=== PATIENT | female | born 1970 | race Caucasian/White ===

== ENCOUNTER 2018-08-22 00:20 | Outpatient (CLI) | payer OTHER, SELFPAY ==
--- NOTE | 2018-08-22 08:39 | DI.MAMMO_ITS ---
SYMPTOMS/DIAGNOSIS: SCREENING, Z12.39 MAMMOGRAM: Mammograms were interpreted according to the usual protocol including computer analysis with CAD system, tomosynthesis and C view imaging. The breasts are of moderate density with fairly symmetrical distribution of fibroglandular tissue. No dominant mass or clumped microcalcification is identified in either breast. Current examination is compared with the previous examinations including June 2016 and there has been no gross interval change in appearance in comparison with the previous studies. CONCLUSION: No specific evidence of malignancy at this time. Routine screening examinations are suggested at yearly intervals due to the family history of breast carcinoma. Category 1, breast density category B. MQSA ASSESSMENT OF FINDINGS: Negative. Category 1. Patient will receive a letter notifying them of these results. BI-RADS category B. There are scattered areas of fibroglandular density.
== END 2018-08-22 00:40 ==
PROVIDERS: PCP Nurse Practitioner Family; Visit Provider Nurse Practitioner Family
DX: Z12.31 Encounter for screening mammogram for malignant neoplasm of breast (principal); Z80.3 Family history of malignant neoplasm of breast
CPT/HCPCS: 77063; 77067

== ENCOUNTER 2018-08-29 08:32 | Outpatient (REF) | payer OTHER, SELFPAY ==
[2018-08-29 12:46] LABS: Glucose 84 mg/dL (70-100); Magnesium 1.8 mg/dL (1.8-2.4)
== END 2018-08-29 08:52 ==
LOC: NCHCN 08:32
PROVIDERS: PCP Nurse Practitioner Family; Visit Provider Nurse Practitioner Family
DX: Z00.00 Encounter for general adult medical examination without abnormal findings (principal); E83.42 Hypomagnesemia
CPT/HCPCS: 82947; 83735

== ENCOUNTER 2019-11-20 09:23 | Outpatient (REF) | payer OTHER, SELFPAY ==
[2019-11-20 20:03] LABS: Calculated LDL 104 mg/dL (<100); Cholesterol 214 mg/dL (<200); Glucose 91 mg/dL (74-106); HDL Cholesterol 93 mg/dL (40-60); Magnesium 1.8 mg/dL (1.8-2.4); Triglyceride 89 mg/dL (<150)
== END 2019-11-20 09:43 ==
LOC: NCHCN 09:23
PROVIDERS: PCP Nurse Practitioner Family
DX: Z00.00 Encounter for general adult medical examination without abnormal findings (principal); E83.42 Hypomagnesemia; Z83.3 Family history of diabetes mellitus; Z13.220 Encounter for screening for lipoid disorders
CPT/HCPCS: 80061; 82947; 83735

== ENCOUNTER 2019-12-18 00:58 | Outpatient (CLI) | payer OTHER, SELFPAY ==
--- NOTE | 2019-12-18 | DI.MAMMO_ITS ---
EXAM: MAMMO SCREENING CLINICAL HISTORY: SCREENING,Z12.39 TECHNIQUE: Mammograms were interpreted according to the usual protocol including computer analysis w [employer] CAD system, tomosynthesis and C-view imaging. COMPARISON: 2013 through 2018 FINDINGS: The breasts are composed of scattered fibroglandular densities, Breast Density category B. No suspicious masses or suspicious microcalcifications are seen. No skin thickening or abnormal axillary lymph nodes are seen. There has been no significant change from prior exams. IMPRESSION: BI-RADS Category 1, Negative mammogram Yearly screening mammography is recommended. Breast Density - Category B, scattered fibroglandular densities. A negative radiographic report should not delay biopsy if a dominant or clinically suspicious mass is present. Up to ten percent of cancers are not identified on mammography. A negative report may reinforce clinical impression. Adenosis and dense breasts may obscure an underlying neoplasm. False positive reports average 6 to 10%. Patient will receive a letter notifying them of these results.
== END 2019-12-18 01:18 ==
PROVIDERS: PCP Nurse Practitioner Family
DX: Z12.31 Encounter for screening mammogram for malignant neoplasm of breast (principal); R92.2 Inconclusive mammogram
CPT/HCPCS: 77063; 77067

== ENCOUNTER 2020-08-17 13:30 | Outpatient (REF) | payer OTHER, SELFPAY ==
--- NOTE | 2020-08-17 09:00 | PAPFT_PTH ---
PATIENT: Jessie Warner LOC: [facility]#:[id number] AGE/SX: 50/F ROOM: RE08/17/[address]: Doreen Junior : 1970 BED: DIS: 08/17/2020 SPEC #: [id number] RECD: 08/18/20 12:45 STATUS: LEXIS REJose #: [id number] RODERICK: 08/17/20 09:[address]: Doreen Junior DEPT: [facility] Cytology RECD BY: Norma Johnson Tissues: 1 - CX/ENDOCX FOR PAP SMEARS Procedures: PAP THIN PREP/UVM Screening HPV DNA PROBE Comments: [id number]
[2020-08-17 13:49] LABS: Hemoglobin A1C 5.8 % (<5.7)
[2020-08-18 10:23] LABS: HIV-1/2 Ag & Ab Screen Negative (Negative)
[2020-08-18 10:40] LABS: Hepatitis C Ab w Rflx HCV PCR Negative (Negative)
== END 2020-08-17 13:31 | disposition home or self-care (01) ==
LOC: NCHCN 13:30
PROVIDERS: PCP Nurse Practitioner Family; Visit Provider Nurse Practitioner Family
DX: Z00.00 Encounter for general adult medical examination without abnormal findings (principal); Z12.4 Encounter for screening for malignant neoplasm of cervix; Z01.419 Encounter for gynecological examination (general) (routine) without abnormal findings; F41.8 Other specified anxiety disorders; Z11.4 Encounter for screening for human immunodeficiency virus [HIV]; R73.09 Other abnormal glucose; R51.9 Headache, unspecified; N95.1 Menopausal and female climacteric states; Z11.59 Encounter for screening for other viral diseases; Z11.51 Encounter for screening for human papillomavirus (HPV)
CPT/HCPCS: 86803; 87389; 88142; 83036; 87624

== ENCOUNTER 2020-12-24 01:49 | Outpatient (CLI) | payer OTHER, SELFPAY ==
--- NOTE | 2020-12-24 | DI.MAMMO_ITS ---
Exam(s) MAMMO SCREENING EXAM: MAMMO SCREENING CLINICAL HISTORY: SCREENING, Z12.39 TECHNIQUE: Bilateral full field digital CC and MLO mammographic images were obtained with 3D tomosyn thesis and utilizing computer aided detection (CAD). COMPARISON: Available for comparison. FINDINGS: Masses/Architectural Distortion: None seen. Microcalcifications: No suspicious pleomorphic-type are seen. Skin Thickening/Nipple Retraction: None. IMPRESSION: 1. No significant interval change with no specific features of malignancy noted. 2. Unless there is more urgent need, screening mammography is recommended, as per [place] guidelines. BI-RADS Category 1 - Negative Breast Density - Category B - Scattered areas of fibroglandular density Breast density category C or D implies that the patient has dense breast tissue. Dense breast tissue is very common and is not abnormal but dense breast tissue can make it harder to find cancer on a ma mmogram. Also, dense breast tissue may increase their breast cancer risk. This information about the result of the mammogram report was provided to the patient to raise their awareness. Use this report when you speak with the patient about their risks for breast cancer, which includes their family hist ory. At that time, you may recommend for more screening tests (Ultrasound or MRI) as they might be us eful based on their risk. A negative radiographic report should not delay biopsy if a dominant or clinically suspicious mass is present. Up to ten percent of cancers are not identified on mammography. A negative report may reinforce clinical impression. Adenosis and dense breasts may obscure an underlying neoplasm. False positive reports average 6 to 10%. Patient will receive a letter notifying them of these results.
== END 2020-12-24 02:09 ==
PROVIDERS: PCP Nurse Practitioner Family; Visit Provider Nurse Practitioner Family
DX: Z12.31 Encounter for screening mammogram for malignant neoplasm of breast (principal)
CPT/HCPCS: 77063; 77067

== ENCOUNTER → 2021-11-08 01:09 | Outpatient (CLI) | payer OTHER, SELFPAY ==
--- NOTE | 2021-11-08 08:42 | DI.MAMMO_ITS ---
Exam(s) MAMMO SCREENING EXAM: MAMMO SCREENING CLINICAL HISTORY: SCREENING, Z12.39 TECHNIQUE: Mammograms were interpreted according to the usual protocol including computer analysis w [employer] CAD system, tomosynthesis and C-view imaging. COMPARISON: FINDINGS: The breasts are of moderate with fairly symmetrical distribution of fibroglandular tissue. No domina nt mass or clumped microcalcification is identified in either breast. The current examination is com pared with previous examinations including December 2020 and there has been no gross interval change in appearance in comparison with the prior studies. IMPRESSION: No specific evidence of malignancy at this time. Routine screening examinations are suggested at yea rly intervals due to the family history of breast carcinoma. BI-RADS Category 1 - Negative Breast Density - Category B - Scattered areas of fibroglandular density
== END ==
PROVIDERS: PCP Nurse Practitioner Family; Visit Provider Nurse Practitioner Family
DX: Z12.31 Encounter for screening mammogram for malignant neoplasm of breast (principal); Z80.3 Family history of malignant neoplasm of breast
CPT/HCPCS: 77063; 77067

== ENCOUNTER 2022-09-12 09:42 | Day surgery (SDC) | payer OTHER, SELFPAY ==
--- NOTE | 2022-09-11 17:57 | W.PM.DSUDISC ---
Date of service: 09/12/22 Time of Service: 12:56 Discharge Plan Disposition Patient Disposition: Home Condition: Good Discharge Details Reason For Visit: Screening colonoscopy Attending Provider: Edward Lo Primary Care Provider: Doreen Junior Home Meds and New Rx's Prescriptions: Continued albuterol sulfate 90 mcg/actuation HFA aerosol inhaler 2 puff inhalation Q6H PRN fluticasone propionate [Allergy Relief (fluticasone)] 50 mcg/actuation spray,suspension 1 spray intranasal DAILY Rx Instructions: administer into each nostril loratadine [Allergy Relief (loratadine)] 10 mg tablet 10 mg PO DAILY budesonide-formoterol [Symbicort] 80-4.5 mcg/actuation HFA aerosol inhaler 1 puff inhalation BID Discontinued bisacodyl [Dulcolax (bisacodyl)] 5 mg tablet,delayed release (DR/EC) 5 mg PO ONCE Qty: 4 0RF Rx Instructions: Take per colonoscopy instructions provided by ordering providers office polyethylene glycol 3350 17 gram/dose powder 17 g PO ONCE Qty: 238 0RF Rx Instructions: Take per colonoscopy instructions provided by ordering providers office Discharge Instructions Additional Instructions: Nishi, we were able to complete your colonoscopy today without any difficulty. I did not see any signs of tumors or polyps, or any abnormalities of your large intestine. I recommend another colonoscopy in 10 years to minimize her chances of developing colon cancer over the course of your lifetime. 1. If tolerated, consume a soft, low fiber diet for 1-2 days. 2. Do not drive, drink alcohol, operate machinery, make critical decisions, or do activities that require coordination or balance for 24 hours. 3. Because air was put into your colon during the procedure, expelling air from your rectum (passing gas or farting) is normal. 4. You may not have a bowel movement for 1-3 days because of the colonoscopy prep. This is normal. 5. Go directly to the emergency room if you notice any of the following: Develop chills (warm to touch), or if you have a thermometer and your temperature is above 101 Difficulty breathing or difficultly swallowing Persistent vomiting Severe abdominal pain, other than gas cramps Severe chest pain Black, tarry stools Any bleeding ? exceeding one tablespoon 6. Call your physician if the site where your intravenous was started becomes red, swollen, painful, and warm to touch. 7. Your physician has reviewed your pre-procedure medications. Please continue to take those medications as previously ordered. You will be given specific information/education regarding any changes to your medications before leaving. Activity:: Activity as Tolerated Diet:: As Tolerated Discharge Orders Discharge Orders: Discharge Order (Routine); Ordered 09/11/22 Ordered By: Edward Lo DS: Diagnosis Discharge Diagnosis (1) Screening for colon cancer: Status: Acute Asessment and Plan: Normal screening colonoscopy. Recommend follow-up in 10 years
--- NOTE | 2022-09-11 17:58 | W.COLOREPORT ---
Date of service: 09/12/22 Time of Service: 12:57 Colonoscopy Report Date of procedure: 09/12/22 Pre-op diagnosis general: Screening colonoscopy Post-op diagnosis procedure note: other (Normal screening colonoscopy) Procedure: Colonoscopy Surgeon: Edward Lo Anesthesia Type: General:No Airway Estimated blood loss (mL): 0 Pathology: none sent Complications: None Disposition: same day Indications: Nishi is a 52-year-old woman here for her first screening colonoscopy Prep: Miralax/Dulcolax Procedure Start Time: 12:32 Procedure End Time: 12:48 Retraction Time: 9 Findings: Normal screening colonoscopy Procedure Description: After the induction of monitored anesthetic care, and with the patient in left lateral decubitus position, I began by performing an external anorectal exam.? Perineum and skin were normal, as was the anal verge.? There was no evidence of external hemorrhoids.? Next, I performed a digital rectal exam.? I did not appreciate any abnormal findings.? Next, I advanced a colonoscope into the rectal vault.? I performed retroflexion.? This was normal.? Using insufflation, I then advanced the colonoscope beyond the rectal folds and into the sigmoid colon before advancing towards the cecum.? The quality of the prep was adequate.? The scope was noted to be in the cecum by identification of the ileocecal valve and appendiceal orifice.? I then began withdrawing the colonoscope using repeated irrigation as necessary for full evaluation of the colonic mucosa. ?Once the scope was withdrawn to the level of the rectum, great care was taken to examine portions of the rectal folds.? I did not see any signs of tumors or polyps. Finally, the scope was withdrawn and the patient was brought to the same-day surgery recovery unit as the anesthetic wore off. ?The findings and instructions were shared with the patient prior to discharge.
[2022-09-12 10:10] VITALS: BP 149/86; PULSE 110; RESP 16; TEMP 36.4; O2SAT 99
[2022-09-12] MEDS: Lactated Ringers 1,000 ML 80 ML IV (10:33)
--- NOTE | 2022-09-12 11:52 | W.ANESPRE ---
General Info Date of Service Date Performed: 09/12/22 Height: 5 ft 8 in Weight: 81.4 kg Body Mass Index (BMI): 27.3 Surgical Procedure: Operation Date: 09/12/22 12:05 Proposed Procedure Side Surgeon sage Lo MD Meds Allergies and Home Medications Allergies Allergy/AdvReac Type Severity Reaction Status Date / Time Penicillins Allergy Severe Verified 09/12/22 10:22 Home Medication Medication Instructions Recorded albuterol sulfate 90 mcg/actuation 2 puff inhalation Q6H PRN 02/21/22 aerosol inhaler fluticasone propionate 50 1 spray intranasal DAILY 02/21/22 mcg/actuation nasal spray,suspension (Allergy Relief (fluticasone)) loratadine 10 mg tablet (Allergy 10 mg PO DAILY 02/21/22 Relief (loratadine)) budesonide-formoterol HFA 80 1 puff inhalation BID 09/01/22 mcg-4.5 mcg/actuation aerosol inhaler (Symbicort) Current Visit Medications: Current Medications Generic Name Dose Route Start Last Admin Trade Name Freq PRN Reason Stop Dose Admin Hyoscyamine Sulfate 0.125 mg 09/11/22 17:59 Hyoscyamine 0.125 Mg Sl/Oral/Chew SL 10/11/22 17:58 DIRECTED PRN Ringer's Solution 1,000 mls @ 80 mls/hr 09/12/22 06:00 09/12/22 10:33 IV 10/09/22 23:59 80 mls/hr INFUSION CAROLINE Administration IV Miscellaneous Supplies 1 each 09/12/22 06:00 Iv Access IV 10/09/22 23:59 DIRECTED CAROLINE Ondansetron HCl 4 mg 09/11/22 17:59 Ondansetron 4 Mg/2 Ml Vial IVP 10/11/22 17:58 Q4H PRN PRN Nausea / Vomiting Sodium Chloride 0 ml 09/12/22 06:00 Normal Saline Flush 10 Ml Syr IV 10/09/22 23:59 PRN PRN Sodium Chloride 0 ml 09/12/22 06:00 Normal Saline 10 Ml Vial IJ 10/09/22 23:59 DIRECTED PRN Sterile Water 0 ml 09/12/22 06:00 Water,Injection,Sterile 10 Ml Vial IJ 10/09/22 23:59 DIRECTED PRN PFSH Active Problems Active Problems: Problem Status Onset Code Screening for colon cancer Z12.11 Prediabetes R73.03 Overweight E66.3 Situational anxiety F41.8 Tobacco use disorder F17.200 Medical History Medical History Asthma Seasonal allergies Stress incontinence Surgical History Surgical History Hx of section Hx of wisdom tooth extraction Tobacco Smoking/Tobacco Use Status: Current every day Tobacco Type: cigarettes Smoking packs per day: 1 Smoking cigarettes per day: 20.0 Alcohol Alcohol Intake: current Alcohol intake frequency: a few times a week Alcohol type: wine Substance Use Substance use: Never Substance use type: does not use Vital Signs and Lab Results Vital Signs Most Recent Vital Signs in EMR: Most Recent Vital Signs Temp Pulse Resp BP Pulse Ox 36.4 C L 110 H 16 149/86 H 99 09/12/22 10:10 09/12/22 10:10 09/12/22 10:10 09/12/22 10:10 09/12/22 10:10 Lab Results Blood Type / Crossmatch: No Data to Display Complete Blood Count: No Data to Display Complete Metabolic Panel: No Data to Display Liver Function Panel: No Data to Display Coagulation Panel: No Data to Display Cardiac Panel: No Data to Display Arterial Blood Gas: No Data to Display Venous Blood Gas: No Data to Display Pancreas Panel: No Data to Display Thyroid Panel: No Data to Display Infectious Disease: No Data to Display Blood Cultures: No Data to Display Toxicology Panel: No Data to Display Panel: No Data to Display Anesthesia Assessment and Plan Anesthesia History Personal History: No History of Anesthesia Complications Family History: No Family History of Anesthesia Complications Exercise Tolerance Exercise Tolerance: Metabolic Equivalents>4 Pertinent Negatives Pertinent Negatives: No Symptoms of GERD and No Major Cardiovascular Symptoms or Complaints Cardiac & Pulmonary Exam Cardiac Exam: Normal S1/S2 Heart Sounds Pulmonary Exam: Clear Bilateral Breath Sounds Implantable Cardiac Device Does patient have a Pacemaker or an ICD?: No Airway Exam Known Difficult Airway: No Mallampati Class: 2 Mouth Opening: Normal (> 3cm) Thyromental Distance: Greater than 3 cm Neck Range of Motion: Full ROM Neck Circumference: Normal Teeth Condition: Normal Dentition ASA Classification ASA Score: ASA 2 Emergency Case?: No NPO Status NPO Status: NPO Clears >2 hours, Solids >8 hours Status Status: Not Per Patient Anesthesia Plan Resuscitation Status: Full Code Anesthesia Technique: General Anesthesia Airway Planned: Natural Airway Monitors Used: Standard Monitors
[2022-09-12 11:56] VITALS: BMI 27.3
[2022-09-12 12:55] VITALS: BP 138/88; PULSE 91; RESP 16; TEMP 36.5; O2SAT 98
--- NOTE | 2022-09-12 12:57 | W.ANESPOSTOP ---
Postoperative Evaluation Date, Time and Location Date Performed: 09/12/22 Time Performed: 12:58 Patient Location: Day Surgery Unit Vital Signs Most Recent Imported Vital Signs: Most Recent Vital Signs Temp Pulse Resp BP Pulse Ox 36.4 C L 110 H 16 149/86 H 99 09/12/22 10:10 09/12/22 10:10 09/12/22 10:10 09/12/22 10:10 09/12/22 10:10 Pain Score Most Recent Pain Score: Most Recent Pain Score Pain Level 0 09/12/22 10:10 Assessment Mental Status: Awake (Alert & Oriented to Patient Baseline) Airway and Respiratory Function: Patent airway with normal (patient baseline) respiratory exam Cardiovascular Function: Hemodynamically Stable Hydration Status: Adequately Hydrated Nausea & Vomiting: No Nausea or Vomiting Pain: Pt. Denies Any Pain Peripheral Nerve Block: Patient did not receive a nerve block
[2022-09-12 13:25] VITALS: BP 135/85; PULSE 87; RESP 16; TEMP 36.3; O2SAT 99
== END 2022-09-12 09:43 | disposition home or self-care (01) ==
PROVIDERS: PCP Nurse Practitioner Family; Visit Provider Surgery
PROC: 0DJD8ZZ Inspection of Lower Intestinal Tract, Via Natural or Artificial Opening Endoscopic (ICD-10-PCS; CPT 45378; principal; 2022-09-12 12:00)
DX: Z12.11 Encounter for screening for malignant neoplasm of colon (principal)
CPT/HCPCS: 45378; 81025; J2704

== ENCOUNTER 2022-10-18 09:25 | Outpatient (REF) | payer OTHER, SELFPAY ==
[2022-10-18 15:09] LABS: Calculated LDL 109 mg/dL (<100); Cholesterol 206 mg/dL (<200); HDL Cholesterol 84 mg/dL (40-60); Triglyceride 68 mg/dL (<150)
== END 2022-10-18 09:26 | disposition home or self-care (01) ==
LOC: NCHCN 09:25
PROVIDERS: PCP Nurse Practitioner Family; Visit Provider Nurse Practitioner Family
DX: Z00.00 Encounter for general adult medical examination without abnormal findings (principal); E66.3 Overweight
CPT/HCPCS: 80061; 83036

== ENCOUNTER 2022-10-25 16:05 | Outpatient (REF) | payer OTHER, SELFPAY ==
[2022-10-25 16:39] LABS: Hemoglobin A1C 5.6 % (<5.7)
== END 2022-10-25 16:06 | disposition home or self-care (01) ==
LOC: NCHCN 16:05
PROVIDERS: PCP Nurse Practitioner Family; Visit Provider Nurse Practitioner Family
DX: Z00.00 Encounter for general adult medical examination without abnormal findings (principal); R06.83 Snoring; R73.03 Prediabetes; N95.1 Menopausal and female climacteric states; J45.30 Mild persistent asthma, uncomplicated; E66.3 Overweight; F17.209 Nicotine dependence, unspecified, with unspecified nicotine-induced disorders
CPT/HCPCS: 83036

== ENCOUNTER 2022-11-09 01:31 | Outpatient (CLI) | payer OTHER, SELFPAY ==
--- NOTE | 2022-11-09 | DI.MAMMO_ITS ---
Exam(s) MAMMO SCREENING EXAM: MAMMO SCREENING CLINICAL HISTORY: SCREENING, Z12.39. TECHNIQUE: Bilateral full field digital CC and MLO mammographic images were obtained with 3D tomosyn thesis and utilizing computer aided detection (CAD). COMPARISON: Prior mammograms were reviewed. FINDINGS: There has been no significant change in the appearance and distribution of the fibroglandular tissue. Benign-appearing lymph nodes both upper outer quadrants again noted There are no new spiculated masses nor malignant appearing microcalcification groups. There is no significant architectural distortion nor skin thickening-retraction. IMPRESSION: No radiographic evidence of malignancy. BI-RADS Category 1 - Negative Breast Density - Category B - Scattered areas of fibroglandular density Breast density Category C or D implies that the patient has dense breast tissue. Dense breast tissue can make it harder to find cancer on a mammogram. Dense breast tissue is also associated with an incr eased risk of breast cancer. This information about the result of the mammogram report was provided to the patient to raise their awareness. Use this report when you speak with the patient about their risks for breast cancer, which includes their family history. At that time, you may recommend additional screening tests (Ultrasoun d or MRI) as these tests may add significant information. A negative radiographic report should not delay biopsy if a dominant or clinically suspicious mass is present. Up to ten percent of cancers are not identified on mammography. A negative report may reinforce clinical impression. Adenosis and dense breasts may obscure an underlying neoplasm. False positive reports average 6 to 10%. Patient will receive a letter notifying them of these results.
== END 2022-11-09 01:51 ==
LOC: DI 01:31
PROVIDERS: PCP Nurse Practitioner Family; Visit Provider Nurse Practitioner Family
DX: Z12.31 Encounter for screening mammogram for malignant neoplasm of breast (principal)
CPT/HCPCS: 77063; 77067

== ENCOUNTER → 2023-11-16 01:08 | Outpatient (CLI) | payer OTHER, SELFPAY ==
--- NOTE | 2023-11-16 | DI.MAMMO_ITS ---
Exam(s) MAMMO SCREENING EXAM: MAMMO SCREENING CLINICAL HISTORY: SCREENING, Z12.31. TECHNIQUE: Bilateral full field digital CC and MLO mammographic images were obtained with 3D tomosyn thesis and utilizing computer aided detection (CAD). COMPARISON: Prior mammograms were reviewed. FINDINGS: There has been no significant change in the appearance and distribution of the fibroglandular tissue. There are no new spiculated masses nor malignant appearing microcalcification groups. There is no significant architectural distortion nor skin thickening-retraction. IMPRESSION: No radiographic evidence of malignancy. BI-RADS Category 1 - Negative Breast Density - Category B - Scattered areas of fibroglandular density Breast density Category C or D implies that the patient has dense breast tissue. Dense breast tissue can make it harder to find cancer on a mammogram. Dense breast tissue is also associated with an incr eased risk of breast cancer. This information about the result of the mammogram report was provided to the patient to raise their awareness. Use this report when you speak with the patient about their risks for breast cancer, which includes their family history. At that time, you may recommend additional screening tests (Ultrasoun d or MRI) as these tests may add significant information. A negative radiographic report should not delay biopsy if a dominant or clinically suspicious mass is present. Up to ten percent of cancers are not identified on mammography. A negative report may reinforce clinical impression. Adenosis and dense breasts may obscure an underlying neoplasm. False positive reports average 6 to 10%. Patient will receive a letter notifying them of these results.
== END ==
PROVIDERS: PCP Nurse Practitioner Family; Visit Provider Nurse Practitioner Family
DX: Z12.31 Encounter for screening mammogram for malignant neoplasm of breast (principal)
CPT/HCPCS: 77063; 77067

== ENCOUNTER 2024-11-25 02:30 | Outpatient (CLI) | payer OTHER, SELFPAY ==
--- NOTE | 2024-11-25 | DI.MAMMO_ITS ---
Exam(s) MAMMO SCREENING EXAM: MAMMO SCREENING CLINICAL HISTORY: Screening, Z12.31; family h/o breast ca in maternal grandmother. TECHNIQUE: Bilateral full field digital CC and MLO mammographic images were obtained with 3D tomosynthesis and utilizing computer aided detection (CAD). COMPARISON: Prior mammograms were reviewed. FINDINGS: There has been no significant change in the appearance and distribution of the fibroglandular tissue. There are no CAD designations There are no new spiculated masses nor malignant appearing microcalcification groups. There is no significant architectural distortion nor skin thickening-retraction. IMPRESSION: No radiographic evidence of malignancy. BI-RADS Category 1 - Negative Breast Density - Category B - There are scattered areas of fibroglandular density. Breast density Category C or D implies that the patient has dense breast tissue. Dense breast tissue can make it harder to find cancer on a mammogram. Dense breast tissue is also associated with an increased risk of breast cancer. This information about the result of the mammogram report was provided to the patient to raise their awareness. Use this report when you speak with the patient about their risks for breast cancer, which includes their family history. At that time, you may recommend additional screening tests (Ultrasound or MRI) as these tests may add significant information. A negative radiographic report should not delay biopsy if a dominant or clinically suspicious mass is present. Up to ten percent of cancers are not identified on mammography. A negative report may reinforce clinical impression. Adenosis and dense breasts may obscure an underlying neoplasm. False positive reports average 6 to 10%. Patient will receive a letter notifying them of these results.
== END 2024-11-25 02:50 ==
PROVIDERS: PCP Nurse Practitioner Family; Visit Provider Nurse Practitioner Family
DX: Z12.31 Encounter for screening mammogram for malignant neoplasm of breast (principal); R92.323 Mammographic fibroglandular density, bilateral breasts
CPT/HCPCS: 77063; 77067

== ENCOUNTER 2024-11-25 04:18 | Outpatient (CLI) | payer OTHER, SELFPAY ==
[2024-11-25 10:25] LABS: Abs Immature Grans 0.04 10^3/uL (0.0-0.06); HCT 44.1 % (36.0-46.0); HGB 15.3 g/dL (11.2-15.7); Immature Grans % 0.4 %; MCH 33.6 pg (27.0-33.0); MCHC 34.7 % (32.0-36.0); MCV 97 fL (80-95); MPV 9.3 fL (8.0-11.0); Platelet Count 348 10^3/uL (130-400); RBC 4.55 10^6/uL (3.93-5.22); RDW 12.6 % (11.7-14.6); RDW-SD 45.0 fL; WBC 10.40 10^3/uL (4.4-10.8)
[2024-11-25 10:27] LABS: Hemoglobin A1C 5.5 % (<5.7)
[2024-11-25 10:37] LABS: ESR 18 mm/hr (0-30)
[2024-11-25 10:45] LABS: ALT 37 U/L (14-59); AST 26 U/L (15-37); Albumin 3.9 g/dL (3.4-5.0); Alkaline Phosphatase 85 U/L (46-116); Anion Gap 9.7 mmol/L (3-11); BUN 12 mg/dL (7-18); Bilirubin, Total 0.5 mg/dL (0.2-1.0); C-Reactive Protein 0.55 mg/dL (<or=0.5); CO2 27.3 mmol/L (21.0-32.0); Calcium 9.7 mg/dL (8.5-10.1); Calculated LDL 98 mg/dL (<100); Chloride 103 mmol/L (98-107); Cholesterol 206 mg/dL (<200); Estimated GFR 106.60 (mL/min/1.73m2); Glucose 127 mg/dL (74-106); HDL Cholesterol 85 mg/dL (>or=50); Potassium 4.0 mmol/L (3.5-5.1); Sodium 140 mmol/L (136-145); Total Protein 7.7 g/dL (6.4-8.2); Triglyceride 119 mg/dL (<150)
[2024-11-25 18:36] LABS: HBs Antibody, Quant <3.1 mIU/mL (See Note); Hepatitis B Surface Ab Negative (See Note)
[2024-11-25 19:03] LABS: Hepatitis C Ab w Rflx HCV PCR Negative (Negative)
[2024-11-25 19:11] LABS: Hep B Core Antibody Negative (Negative)
[2024-11-26 14:49] LABS: Ro60 Ab, IgG <7.0 CU (<20.0); SS-A/Ro, IgG <2.3 CU (<20.0); SS-B (La) Ab, IgG <3.3 CU (<20.0)
[2024-11-27 13:41] LABS: TB Interpretation Negative (Negative); TB1 Ag minus Nil 0.05 IU/mL; TB2 Ag minus Nil 0.15 IU/mL
== END 2024-11-25 04:19 | disposition home or self-care (01) ==
PROVIDERS: Internal Medicine Rheumatology; PCP Nurse Practitioner Family; Visit Provider Nurse Practitioner Family
DX: M06.9 Rheumatoid arthritis, unspecified (principal); Z11.59 Encounter for screening for other viral diseases; Z11.1 Encounter for screening for respiratory tuberculosis; Z13.6 Encounter for screening for cardiovascular disorders
CPT/HCPCS: 36415; 80053; 80061; 85652; 86200; 86704; 86706; 86803; 87340; 83036; 85025; 86140; 86235; 86480